=== PATIENT | female | born 1965 | race Caucasian/White ===

== ENCOUNTER → 2016-09-14 | Outpatient (CLI) | payer OTHER ==
[~2016-09-14] MED LIST: CLRD24 PO
--- NOTE | 2016-09-14 17:07 | MAMMOGRAPHY REPORT ---
BILATERAL DIGITAL SCREENING MAMMOGRAM TOMOSYNTHESIS WITH CAD: 09/14/2016 CLINICAL HISTORY: Routine screening. Patient has no complaints. TECHNIQUE: Breast tomosynthesis in addition to standard 2D mammography was performed. Current study was also evaluated with a Computer Aided Detection (CAD) system. COMPARISON: Comparison is made to exams dated: 07/26/2014 mammogram, 06/22/2012 mammogram, 07/01/2013 mammogram, and 06/18/2010 mammogram - [facility] Diandra Shay. BREAST COMPOSITION: There are scattered areas of fibroglandular density in both breasts. FINDINGS: There are diffuse bilateral round microcalcifications in the breasts. No suspicious mass, architectural distortion or cluster of suspicious microcalcifications is seen. IMPRESSION: ACR BI-RADS CATEGORY 1: NEGATIVE There is no mammographic evidence of malignancy. A 1 year screening mammogram is recommended. The p atient will receive written notification of the results. Approximately 10% of breast cancers are not detected with mammography. A negative mammographic repor t should not delay biopsy if a clinically suggestive mass is present. Alexa Dolan M.D. ay/:09/14/2016 14:26:36 Sheet Metal Worker Apprentice: Lisette METZGER(Quentin)(Kate), [facility] letter sent: Normal 1/2 BI-RADS Code: ACR BI-RADS Category 1: Negative
== END | disposition home or self-care (01) ==
LOC: C.MAMM 07:20
PROVIDERS: ATTEND Internal Medicine
DX: Z12.31 Encounter for screening mammogram for malignant neoplasm of breast (principal)

== ENCOUNTER → 2017-09-28 | Outpatient (CLI) | payer OTHER ==
[~2017-09-28] MED LIST changes: -CLRD24 PO; +DVN80 PO; +HYDR12.55 PO; +HYZ/10015 PO; +LORA-749 PO; +LOSARTAN; +MISCCAP80 PO; +MULT-506 PO; +PRLSR20 PO; +TRAZ50TA35 PO
--- NOTE | 2017-09-28 14:29 | MAMMOGRAPHY REPORT ---
BILATERAL DIGITAL SCREENING MAMMOGRAM TOMOSYNTHESIS WITH CAD: 09/28/2017 CLINICAL HISTORY: Routine screening. Patient has no complaints. TECHNIQUE: Breast tomosynthesis in addition to standard 2D mammography was performed. Current study was also evaluated with a Computer Aided Detection (CAD) system. COMPARISON: Comparison is made to exams dated: 09/14/2016 mammogram - [facility], 1 09/26/2013 mammogram, 06/27/2013 mammogram - [facility] [address] Diandra Shay. BREAST COMPOSITION: There are scattered areas of fibroglandular density in both breasts. FINDINGS: No suspicious masses, calcifications, or areas of architectural distortion are noted in ei ther breast. There has been no significant interval change compared to prior exams. Scattered bilater al benign-appearing calcifications are not significantly changed. IMPRESSION: ACR BI-RADS CATEGORY 2: BENIGN There is no mammographic evidence of malignancy. A 1 year screening mammogram is recommended. The pa tient will receive written notification of the results. Approximately 10% of breast cancers are not detected with mammography. A negative mammographic report should not delay biopsy if a clinically suggestive mass is present. My Mcdermott M.D. /:09/28/2017 07:41:46 Party Supply Specialist: Lisette BIGGS)(Kate), [facility] letter sent: Normal 1/2 BI-RADS Code: ACR BI-RADS Category 2: Benign
== END | disposition home or self-care (01) ==
LOC: C.MAMM 07:18
PROVIDERS: ATTEND Internal Medicine
DX: Z12.31 Encounter for screening mammogram for malignant neoplasm of breast (principal)

== ENCOUNTER → 2017-09-29 | Day surgery (SDC) | payer OTHER ==
[2017-09-19 12:06] VITALS: BMI 24.0
[~2017-09-29] VITALS: Ht 162.6 cm; Wt 63.6 kg
[~2017-09-29] MED LIST changes: +FENTANYL CITRATE INJ 50 MCG/1 ML 2 ML VIAL ONE; +LIDOCAINE HCL 2% 2 ML VIAL (20MG/ML) ONE; +MIDAZOLAM HCL 1 MG/ML 2ML VIAL ONE; +PROPOFOL IV EMULSION 10 MG/ML 20 ML VIAL IV ONE; +SODIUM CHLORIDE 0.9% 500ML 500 ML IV ONE
[2017-09-29 09:23] VITALS: Ht 162.6 cm; Wt 63.6 kg
--- NOTE | 2017-09-29 09:38 | Endo History and Physical ---
History & Physical Date of Service: Sep 29, 2017. Chief Complaint: SCREENING FOR COLON CANCER, HISTORY OF POLYPS Referring Physician: DR VARNER History of Present Illness 52 yo CF who presents for colonoscopy secondary to history of colon polyps. Past Surgical History Hx Cardiac Surgery: No Hx Internal Defibrillator: No Hx Abdominal Surgery: No Hx of Implantable Prosthesis: No Hx Post-Op Nausea and Vomiting: No Hx Cancer Surgery: No Hx Thoracic Surgery: No Hx Orthopedic: Yes (RT/LEFT KNEE SURGERIES (TOTAL OF 7), RT WRIST NERVE SURGERY ) Hx Urinary Tract Surgery: No Social History Smoking Status: Former Smoker Hx Substance Use: No Hx Alcohol Use: Yes ("SOCIALLY") Allergies Coded Allergies: Tramadol (Verified Allergy, Mild, VOMITTING AND HEADACHE, 09/19/17) Current Medications Reported Home Medications Medications Dose Route/Sig Max Daily Dose Days Date Category Diovan (Valsartan) 80 Mg Tab 80 Mg PO QAM 09/19/17 Reported Trazodone (Trazodone HCl) 50 Mg Tab 50 Mg PO HS PRN 09/19/17 Reported Probiotic (Probiotic Product) 1 Cap Cap 1 Cap PO QAM 09/19/17 Reported Prilosec (Omeprazole) 20 Mg Capcr 20 Mg PO QAM 09/19/17 Reported Multivitamin (Multivitamins) Tab 1 Tab PO QAM 09/19/17 Reported Hydrochlorothiazide 12.5 Mg Tab 1 Tab PO QAM 09/19/17 Reported Claritin-D 24 Hour (Loratadine & Pseudoephedrine) 1 Tab Tab 1 Tab PO QAM 09/19/17 Reported Vital Signs Weight (Kilograms): 63.64 Height (Feet): 5 Height (Inches): 4 Date Time Temp Pulse Resp B/P (MAP) Pulse Ox O2 Delivery O2 Flow Rate FiO2 09/29/17 09:25 36.9 115 16 138/95 (109) 99 Room Air Physical Exam General Appearance: WD/WN, no apparent distress Respiratory/Chest: Auscultation: breath sounds normal Cardiovascular: Heart Auscultation: RRR Abdomen: Bowel Sounds: normal Inspection & Palpation: soft, non-distended, no tenderness, guarding & rebound Assessment and Plan Assessment: 52 yo CF who presents for colonoscopy secondary to history of colon polyps. Plan: Proceed with colonoscopy.
--- NOTE | 2017-09-29 10:03 | Discharge Instructions ---
Endoscopy Patient Instructions Date / Procedure(s) Performed Sep 29, 2017. Colonoscopy Allergy Information Coded Allergies: Tramadol (Verified Allergy, Mild, VOMITTING AND HEADACHE, 09/19/17) Discharge Date / Findings Sep 29, 2017. Colon polyps Internal hemorrhoids Medication Instructions OK to resume all medications today as prescribed Reported Home Medications Medications Dose Route/Sig Max Daily Dose Days Date Category Diovan (Valsartan) 80 Mg Tab 80 Mg PO QAM 09/19/17 Reported Trazodone (Trazodone HCl) 50 Mg Tab 50 Mg PO HS PRN 09/19/17 Reported Probiotic (Probiotic Product) 1 Cap Cap 1 Cap PO QAM 09/19/17 Reported Prilosec (Omeprazole) 20 Mg Capcr 20 Mg PO QAM 09/19/17 Reported Multivitamin (Multivitamins) Tab 1 Tab PO QAM 09/19/17 Reported Hydrochlorothiazide 12.5 Mg Tab 1 Tab PO QAM 09/19/17 Reported Claritin-D 24 Hour (Loratadine & Pseudoephedrine) 1 Tab Tab 1 Tab PO QAM 09/19/17 Reported Provider Instructions Activity Restrictions - No exercising or heavy lifting for 24 hours. - Do not drink alcohol the day of the procedure. - Do not drive a car or operate machinery until the day after the procedure. - Do not make any important decisions or sign important papers in 24 hours after the procedure. Following Day: - Return to full activity which may include returning to work/school. Diet Start your diet with liquids and light foods (jello, soup, juice, toast). Then eat your usual diet if not nauseated. Treatment For Common After Affects For mild abdominal pain, bloating, or excessive gas: - Rest - Eat lightly - Lie on right side Follow-Up Information Follow-up with DR VARNER as scheduled Anesthesia Information What You Should Know You have had a procedure that required some medicine to reduce anxiety and discomfort. This treatment is called moderate sedation. After receiving the treatment, you may be sleepy, but you will be able to breathe on your own. The effects of the treatment may last for several hours. Follow these instructions along with Activity/Diet recommendations noted above: * Do NOT do anything where dizziness or clumsiness would be dangerous. * Rest quietly at home today, then you can be up and about tomorrow. * Have a responsible person stay with you the rest of today. * You may have had an I.V. today. If so, you may take the dressing off later today. Recommendations Call your doctor if: * Trouble breathing * Continuous vomiting for more than 24 hours * Temperature above 101 degrees * Severe abdominal pain or bloating * Pain not relieved by pain medicine ordered * There is increased drainage or redness from any incision * A large amount of rectal bleeding greater than 2-3 tablespoons. (If you had a polyp/s removed or have hemorrhoids, a small amount of blood - from the rectum is to be expected.) * You have any unanswered questions or concerns. IN THE EVENT OF A SERIOUS EMERGENCY, GO TO THE NEAREST EMERGENCY ROOM Your discharge instructions were prepared by provider Leland Oleary. Patient Instructions Signature Page Sadie Al Patient (or Guardian) Signature/Date: I have read and understand the instructions given to me by my caregivers. Caregiver/RN/Doctor Signature/Date: The above-named patient and/or guardian has received patient instructions on this date. + Original Patient Signature Page (only) stays with chart. Please make copy for patient.
--- NOTE | 2017-09-29 10:07 | GI REPORT ---
Procedure Date: 09/29/2017 9:31 AM Procedure: Colonoscopy Indications: High risk colon cancer surveillance: Personal history of colonic polyps Medicines: Monitored Anesthesia Care Complications: No immediate complications. Estimated Blood Loss: Estimated blood loss: none. Procedure: Pre-Anesthesia Assessment: - Prior to the procedure, a History and Physical was performed, and patient medications and allergies were reviewed. The patient's tolerance of previous anesthesia was also reviewed. The risks and benefits of the procedure and the sedation options and risks were discussed with the patient. All questions were answered, and informed consent was obtained. Prior Anticoagulants: The patient has taken no previous anticoagulant or antiplatelet agents. ASA Grade Assessment: II - A patient with mild systemic disease. After reviewing the risks and benefits, the patient was deemed in satisfactory condition to undergo the procedure. After I obtained informed consent, the scope was passed under direct vision. Throughout the procedure, the patient's blood pressure, pulse, and oxygen saturations were monitored continuously. The scope was introduced through the anus and advanced to the terminal ileum. The colonoscopy was performed without difficulty. The patient tolerated the procedure well. The quality of the bowel preparation was good. The terminal ileum, the appendiceal orifice and the rectum were photographed. Findings: The perianal and digital rectal examinations were normal. A 9 mm polyp was found in the cecum. The polyp was flat. The polyp was removed with a piecemeal technique using a hot snare. Resection and retrieval were complete. Three pedunculated and sessile polyps were found in the sigmoid colon. The polyps were 5 to 15 mm in size. These polyps were removed with a hot snare. Resection and retrieval were complete. Non-bleeding internal hemorrhoids were found during retroflexion. The hemorrhoids were small. Impression: - One 9 mm polyp in the cecum, removed piecemeal using a hot snare. Resected and retrieved. - Three 5 to 15 mm polyps in the sigmoid colon, removed with a hot snare. Resected and retrieved. - Non-bleeding internal hemorrhoids. Recommendation: - Resume previous diet. - Continue present medications. - Repeat colonoscopy for surveillance based on pathology results. - Return to primary care physician as previously scheduled. Leland Oleary DO 09/29/2017 10:07:24 AM This report has been signed electronically. Note Initiated On: 09/29/2017 9:31 AM I attest to the content of the Intraoperative Record and orders documented therein, exceptions below
--- NOTE | 2017-09-29 10:19 | Anesthesiology Progress Note ---
Anesthesia Post Op Note Date & Time Sep 29, 2017 at 10:19 Vital Signs Pain Intensity: 0 Vital Signs Past 12 Hours Date Time Temp Pulse Resp B/P (MAP) Pulse Ox O2 Delivery O2 Flow Rate FiO2 09/29/17 10:05 113 16 102/75 (84) 97 Room Air 09/29/17 09:25 36.9 115 16 138/95 (109) 99 Room Air Notes Mental Status: alert / awake / arousable, participated in evaluation Pt Amnestic to Procedure: Yes Nausea / Vomiting: adequately controlled Pain: adequately controlled Airway Patency, RR, SpO2: stable & adequate BP & HR: stable & adequate Hydration State: stable & adequate Anesthetic Complications: no major complications apparent
[2017-09-29 10:35] VITALS: BP 110/83; PULSE 90; O2SAT 98
== END | disposition home or self-care (01) ==
LOC: C.GI 09:03
PROVIDERS: ATTEND Internal Medicine
DX: Z12.11 Encounter for screening for malignant neoplasm of colon (principal); D12.0 Benign neoplasm of cecum; D12.5 Benign neoplasm of sigmoid colon; Z86.010 Personal history of colon polyps; Z87.891 Personal history of nicotine dependence; Z88.6 Allergy status to analgesic agent; Z79.899 Other long term (current) drug therapy; K64.8 Other hemorrhoids

== ENCOUNTER → 2017-11-15 | Outpatient (CLI) | payer OTHER ==
[~2017-11-15] MED LIST changes: -FENTANYL CITRATE INJ 50 MCG/1 ML 2 ML VIAL ONE; -HYZ/10015 PO; -LIDOCAINE HCL 2% 2 ML VIAL (20MG/ML) ONE; -LOSARTAN; -MIDAZOLAM HCL 1 MG/ML 2ML VIAL ONE; -PROPOFOL IV EMULSION 10 MG/ML 20 ML VIAL IV ONE; -SODIUM CHLORIDE 0.9% 500ML 500 ML IV ONE
[2017-11-15 09:33] LABS: BASO % 0.9 %; BASO ABS # 0.04 K/uL (0-0.2); EOS % 3.2 %; EOS ABS # 0.15 K/uL (0-0.5); HEMATOCRIT 38.9 % (37-47); HEMOGLOBIN 13.3 g/dL (12.0-16.0); IG# 0.01 K/uL (0.00-0.02); LYMPH % 39.7 %; LYMPH ABS # 1.86 K/uL (1.2-3.4); MEAN CELL VOLUME 99.2 fL (80-100); MEAN CORPUSCULAR HEMOGLOBIN 33.9 pg (25-34); MEAN CORPUSCULAR HGB CONC 34.2 g/dl (32-36); MEAN PLATELET VOLUME 9.8 fL (7.4-10.4); MONO ABS # 0.33 K/uL (0.11-0.59); PLATELET COUNT 346 K/uL (130-400); RED CELL DISTRIBUTION WIDTH CV 12.4 % (11.5-14.5); RED CELL DISTRIBUTION WIDTH SD 44.5 fL (36.4-46.3); WHITE BLOOD COUNT 4.69 K/uL (4.8-10.8)
[2017-11-15 10:05] LABS: BLOOD UREA NITROGEN 10 mg/dl (7-18); CARBON DIOXIDE 30 mmol/L (21-32); CREATININE 0.67 mg/dl (0.60-1.20); GLUCOSE 95 mg/dl (70-99); POTASSIUM 3.4 mmol/L (3.5-5.1); SODIUM 139 mmol/L (136-145)
[2017-11-15 10:18] LABS: CHOLESTEROL 210 mg/dl (0-200); LDL CHOLESTEROL CALCULATED 111 mg/dl
== END | disposition home or self-care (01) ==
LOC: C.LAB1850 07:18
PROVIDERS: ATTEND Internal Medicine
DX: I10 Essential (primary) hypertension (principal); D58.2 Other hemoglobinopathies

== ENCOUNTER → 2018-03-15 | Outpatient (CLI) | payer OTHER | END | disposition home or self-care (01) | LOC: C.LABSPEC 11:59 | PROVIDERS: ATTEND Physician Assistant | DX: R19.7 Diarrhea, unspecified (principal) ==

== ENCOUNTER → 2018-03-16 | Outpatient (CLI) | payer OTHER ==
--- NOTE | 2018-03-16 12:42 | DIAGNOSTIC IMAGING REPORT ---
ABDOMEN AND PELVIS CT WITHOUT CONTRAST CT DOSE: 515.44 mGycm HISTORY: Generalized abdominal painR19.7 Acute [id number] TECHNIQUE: Multiaxial CT images of the abdomen and pelvis were performed without contrast. A dose lowering technique was utilized adhering to the principles of ALARA. COMPARISON STUDY: None. FINDINGS: There is a 3 mm nodule within the left lower lobe on image 28. No pneumoperitoneum. No pneumatosis. No suspicious lytic or blastic osseous lesions. The unenhanced liver, gallbladder, pancreas, spleen, and adrenal glands are unremarkable. Normal kidneys. No renal or ureteral stones. No hydronephrosis. No retroperitoneal lymphadenopathy. Normal bladder, uterus, and bilateral adnexa. Suggestive of bilateral tubal ligation clips. Suboptimal evaluation for bowel pathology due to the lack of intravenous and oral contrast. However, there is no definite bowel wall thickening or obstruction. Normal appendix. IMPRESSION: 1. No bowel wall thickening or obstruction. 2. Normal appendix. 3. No renal stones or hydronephrosis. 4. An indeterminate 3 mm nodule within the left lower lobe. Please refer to below summary of Fleischner criteria recommendations for follow-up of incidental CT nodules (Anastacio Esparza, Guidelines for management of small pulmonary nodules detected on CT scans: A statement from the Fleischner Society, Radiology 237: [id number].) SOLID NODULES Solitary nodule size: <6 mm * Low risk patients: no follow-up needed * high risk patients: optional CT at 12 months Solitary nodule size: 6-8 mm * Low risk patients: follow-up at 6-12 months, then consider further follow-up at 18-24 months * high risk patients: initial follow-up CT at 6-12 months and then at 18-24 months if no change Solitary nodule size: >8 mm * either low or high risk patients - consider follow-up CT at 3 months, and/or CT-PET, and/or biopsy Multiple nodules size: <6 mm * Low risk patients: no routine follow-up * high risk patients: optional CT at 12 months Multiple nodules size: 6-8 mm * Low risk patients: follow-up at 3-6 months, then consider further follow-up at 18-24 months * high risk patients: follow-up at 3-6 months, then at 18-24 months if no change Multiple nodules size: >8 mm * Low risk patients: follow-up at 3-6 months, then consider further follow-up at 18-24 months * high risk patients: follow-up at 3-6 months, then at 18-24 months if no change Note: newly detected indeterminate nodule in persons 35 years of age or older. * Low risk patients: minimal or absent history of smoking and/or other known risk factors * high risk patients: history of smoking or of other known risk factors (e.g. first degree relative with lung cancer, or exposure to asbestos, radon, uranium) * if a nodule up to 8 mm is partly solid or is ground glass further follow-up is required after 24 months to exclude possible slow growing adenocarcinoma (SIA) SUBSOLID NODULES Solitary pure ground-glass nodule * nodule size <6 mm - no CT follow-up required * nodule size >=6 mm - follow-up CT at 6-12 months, then every 2 years until 5 years Solitary part-solid nodule * nodule size <6 mm - no CT follow-up required * nodule size >=6 mm - follow-up CT at 3-6 months. If unchanged, and solid component remains <6 mm, then annual follow-up for 5 years Multiple subsolid nodules * nodule size <6 mm - follow-up CT at 3-6 months, consider further follow-up at 2 and 4 years if stable * nodule size >=6 mm - follow-up CT at 3-6 months, subsequent management based on the most suspicious nodule(s) Electronically signed by: Xavier Javier M.D. 03/16/2018 12:40 PM Dictated Date/Time: 03/16/2018 12:26 PM
== END | disposition home or self-care (01) ==
LOC: C.CTS 12:07
PROVIDERS: ATTEND Physician Assistant
DX: R19.7 Diarrhea, unspecified (principal); R10.9 Unspecified abdominal pain; R91.1 Solitary pulmonary nodule